=== PATIENT | female | born 1960 | race Caucasian/White ===

== ENCOUNTER → 2020-07-17 | Outpatient (CLI) | payer MEDICARE, OTHER ==
[2020-07-17 19:32] LABS: International Normalized Ratio 1.63
== END ==
LOC: LAB 19:12 → LAB SHORT 19:12
PROVIDERS: Family Medicine
DX: Z79.01 Long term (current) use of anticoagulants (principal); Z51.81 Encounter for therapeutic drug level monitoring; I82.513 Chronic embolism and thrombosis of femoral vein, bilateral
CPT/HCPCS: 85610